=== PATIENT | male | born 1955 | race Caucasian/White ===

== ENCOUNTER 2018-04-26 08:16 | Day surgery (SDC) | payer MEDICAID ==
[2018-04-26] MEDS ORDERED: SODIUM CHLORIDE 0.9% 1,000 ML IV ONE (08:35)
[2018-04-26] MEDS ORDERED: DIPHENHYDRAMINE 50 MG/ML, 1ML IVPush ONE (09:00)
[2018-04-26] MEDS ORDERED: HEPARIN 1,000 UNITS/ML, 10ML ONE (09:45)
[2018-04-26] MEDS ORDERED: FENTANYL PF 100 MCG/2ML ONE (09:45)
[2018-04-26] MEDS ORDERED: MIDAZOLAM 1 MG/ML, 5ML ONE (09:45)
[2018-04-26] MEDS ORDERED: VERAPAMIL 2.5 MG/ML, 2ML ONE (09:45)
[2018-04-26] MEDS ORDERED: LIDOCAINE-MPF 2%, 2ML ONE (09:50)
[2018-04-26] MEDS ORDERED: PLEASE ENTER HEIGHT AND WEIGHT MC SCH (10:30)
[2018-04-26] MEDS ORDERED: SODIUM CHLORIDE 0.9% 1,000 ML IV SCH (11:29)
[2018-04-26] MEDS ORDERED: CEFD300C37 PO (13:08)
[2018-04-26] MEDS ORDERED: ALPR-475 PO (13:08)
[2018-04-26] MEDS ORDERED: FLUT9.9S16 NAS (13:08)
[2018-04-26] MEDS ORDERED: TEMA15CA PO (13:08)
[2018-04-26 13:22] VITALS: BP 146/95
== END 2018-04-26 15:15 | disposition home or self-care (01) ==
LOC: CACL 08:16
PROVIDERS: ATTEND Internal Medicine Cardiovascular Disease
DX: I35.0 Nonrheumatic aortic (valve) stenosis (principal); Z72.89 Other problems related to lifestyle
CPT/HCPCS: 71046; 93458; 99156; 99157; C1769; C1894; J1644; J2250; J3010; J3490; Q9967

== ENCOUNTER → 2018-05-21 | Outpatient (CLI) | payer MEDICARE, MEDICAID ==
[~2018-05-21] MED LIST: ALPR-475 PO; ASPI-621 PO; CEFD300C37 PO; DICL50TA2 PO; FLUT9.9S16 NAS; FURO-93 PO; OMNIPAQUE 350 MG/ML, 100ML BOTTLE ONE; OXYC5TAB3 PO; POTA10TA5 PO; TEMA15CA PO; WARF10TA PO-COUM
== END | disposition home or self-care (01) ==
LOC: RAD 11:13
PROVIDERS: ATTEND Thoracic Surgery (Cardiothoracic Vascular Surgery)
DX: Z01.810 Encounter for preprocedural cardiovascular examination (principal); I35.0 Nonrheumatic aortic (valve) stenosis
CPT/HCPCS: 71275; Q9967

== ENCOUNTER 2018-05-23 04:19 | Inpatient (IN) | payer MEDICARE, MEDICAID ==
[2018-05-22 12:50] LABS: MICROSCOPIC NOT IND
[2018-05-22 14:00] LABS: BASOPHILS # (AUTO) 0.07 x10^3/uL (0-0.1); BASOPHILS % (AUTO) 1 % (0-1); EOSINOPHILS # (AUTO) 0.25 x10^3/uL (0-0.4); EOSINOPHILS % (AUTO) 3 % (1-7); LYMPHOCYTES # (AUTO) 1.77 x10^3/uL (1-3.4); LYMPHOCYTES % (AUTO) 24 % (22-44); MD NO; MEAN CORPUSCULAR HEMOGLOBIN 32.2 pg (27.5-34.5); MEAN CORPUSCULAR HGB CONC 34.2 g/dL (33.2-36.2); MEAN CORPUSCULAR VOLUME 94.1 fL (81-97); MEAN PLATELET VOLUME 7.6 fL (7.4-10.4); MONOCYTES # (AUTO) 0.43 x10^3/uL (0.2-0.8); MONOCYTES % (AUTO) 6 % (2-9); NEUTROPHILS # (AUTO) 4.82 x10^3/uL (1.8-6.8); NEUTROPHILS % (AUTO) 66 % (42-75); PLATELET COUNT 267 x10^3/uL (130-400); RED BLOOD COUNT 5.07 x10^6/uL (4.38-5.82); RED CELL DISTRIBUTION WIDTH 13.9 % (9.4-14.8)
[2018-05-22 14:11] LABS: ALANINE AMINOTRANSFERASE 51 U/L (12-78); ALBUMIN 4.4 g/dL (3.4-5.0); ANION GAP 10 mmol/L (5-15); CALCIUM 9.7 mg/dL (8.5-10.1); CHLORIDE 103 mmol/L (98-107); CREATININE 1.42 mg/dL (0.7-1.3); INTERNATIONAL NORMALIZED RATIO 0.99 (0.93-1.1); PROTHROMBIN TIME 10.3 Seconds (9.6-11.5)
[2018-05-22 14:13] LABS: ALKALINE PHOSPHATASE 69 U/L (45-117); BILIRUBIN,TOTAL 0.6 mg/dL (0.2-1.0); TOTAL PROTEIN 8.1 g/dL (6.4-8.2)
[2018-05-22 14:58] LABS: HEMOGLOBIN A1C 5.3 % (4.2-6.3)
[~2018-05-23] VITALS: Ht 196.8 cm; Wt 119.2 kg
[~2018-05-23 04:19] MED LIST changes: -ASPI-621 PO; -DICL50TA2 PO; -FURO-93 PO; -OMNIPAQUE 350 MG/ML, 100ML BOTTLE ONE; -OXYC5TAB3 PO; -POTA10TA5 PO; -WARF10TA PO-COUM
[2018-05-23] MEDS ORDERED: ALBUMIN HUMAN 5% 500 ML IV PRN (04:30)
[2018-05-23 04:39] VITALS: BP_SYST 111; BP_SYST 123; BP_DIAS 80
[2018-05-23] MEDS ORDERED: CHLORHEXIDINE 15 ML UDC MM SCH (05:00)
[2018-05-23] MEDS ORDERED: CHLORHEXIDINE 15 ML UDC MM PRN (05:00)
[2018-05-23] MEDS ORDERED: INSULIN LISPRO 100 UNITS/ML, PEN SQ-INSULIN SCH (05:00)
[2018-05-23] MEDS ORDERED: MIDAZOLAM 10MG/2 ML ONE (06:48)
[2018-05-23] MEDS ORDERED: SUFentanil 50 MCG/ML, 5ML ONE (06:50)
[2018-05-23 06:54] VITALS: BP 114/84
[2018-05-23] MEDS ORDERED: PHENYLEPHRINE 10 MG in SODIUM CHLORIDE 0.9% 249 ML IV PRN (07:30)
[2018-05-23] MEDS ORDERED: DEXMEDETOMIDINE 200 MCG in SODIUM CHLORIDE 0.9% 48 ML IV SCH (07:30)
[2018-05-23] MEDS ORDERED: EPINEPHRINE 2 MG in SODIUM CHLORIDE 0.9% 248 ML IV SCH (07:30)
[2018-05-23] MEDS ORDERED: CEFUROXIME 1.5 GM in SODIUM CHLORIDE 0.9% 50 ML IVPB PRN (07:30)
[2018-05-23] MEDS ORDERED: REGULAR INSULIN 62.5 UNITS in SODIUM CHLORIDE 0.9% 249.375 ML IV PRN ×2 (07:30→10:51)
[2018-05-23] MEDS ORDERED: VANCOMYCIN 1,700 MG in SODIUM CHLORIDE 0.9% 250 ML IV PRN (07:30)
[2018-05-23] MEDS ORDERED: MANNITOL PMX 20% 500 ML IVPB PRN (07:30)
[2018-05-23] MEDS ORDERED: POTASSIUM CHLORIDE 80 MEQ, SODIUM BICARBONATE 8.4% 10 MEQ, MAGNESIUM SULFATE 0.5 GM, LI... IV PRN (07:30)
[2018-05-23] MEDS ORDERED: PROTAMINE SULFATE 10 MG/ML, 25ML ONE ×2 (08:48→08:49)
[2018-05-23] MEDS ORDERED: PROPOFOL 10 MG/ML, 20ML ONE (08:49)
[2018-05-23] MEDS ORDERED: AMINOCAPROIC ACID 250 MG/ML, 20ML ONE ×2 (08:49)
[2018-05-23] MEDS ORDERED: MUPIROCIN OINT 2%, 22GM TP SCH (09:00)
[2018-05-23] MEDS ORDERED: SODIUM CHLORIDE FLUSH 10ML SYR IVF SCH ×2 (09:00)
[2018-05-23] MEDS ORDERED: ROCURONIUM 10 MG/ML,10ML ONE (10:00)
[2018-05-23] MEDS ORDERED: VASOPRESSIN 20 UNIT/ML, 1ML ONE (10:15)
[2018-05-23] MEDS ORDERED: CALCIUM CHLORIDE 10%, 10ML SYR ONE (10:24)
[2018-05-23] MEDS ORDERED: SODIUM BICARBONATE 1 MEQ/ML, 50ML VIAL ONE (10:34)
[2018-05-23] MEDS ORDERED: SODIUM BICARB 8.4%, 50ML SYRINGE ONE (10:34)
[2018-05-23] MEDS ORDERED: LIDOCAINE 2% 100MG/5ML SYRINGE ONE (10:35)
[2018-05-23] MEDS ORDERED: HEPARIN 1,000 UNITS/ML, 30ML ONE (10:35)
[2018-05-23] MEDS ORDERED: ALBUMIN HUMAN 25% 50 ML ONE (10:35)
[2018-05-23] MEDS ORDERED: NITROGLYCERIN/D5W PMX 250 ML IV PRN (10:51)
[2018-05-23] MEDS ORDERED: DEXMEDETOMIDINE 200 MCG in SODIUM CHLORIDE 0.9% 48 ML IV PRN (10:51)
[2018-05-23] MEDS ORDERED: SODIUM CHLORIDE 0.9% 1,000 ML IV PRN (10:51)
[2018-05-23] MEDS ORDERED: VASOPRESSIN 50 UNIT in SODIUM CHLORIDE 0.9% 247.5 ML IV PRN (10:51)
[2018-05-23] MEDS ORDERED: DOBUTAMINE 250 MG in SODIUM CHLORIDE 0.9% 230 ML IV PRN (10:51)
[2018-05-23] MEDS ORDERED: INSULIN REGULAR 100 UNITS/ML, 3ML VIAL IVPush PRN (11:00)
[2018-05-23] MEDS ORDERED: BISACODYL 10 MG SUPP PR PRN (11:00)
[2018-05-23] MEDS ORDERED: ONDANSETRON 2MG/ML, 2ML IVPush PRN (11:00)
[2018-05-23] MEDS ORDERED: DEXTROSE 50%, 50ML SYRINGE IVPush PRN (11:00)
[2018-05-23] MEDS ORDERED: BISACODYL 5 MG EC TABLET PO PRN (11:00)
[2018-05-23] MEDS ORDERED: DEXTROSE 4 GM TAB.CHEW PO PRN (11:00)
[2018-05-23] MEDS ORDERED: ACETAMINOPHEN 650 MG SUPP PR PRN (11:00)
[2018-05-23] MEDS ORDERED: EPINEPHRINE 2 MG in SODIUM CHLORIDE 0.9% 248 ML IV PRN (11:00)
[2018-05-23] MEDS ORDERED: GLUCAGON 1 MG IM PRN (11:00)
[2018-05-23] MEDS ORDERED: MIDAZOLAM 1 MG/ML, 5ML IVPush PRN (11:00)
[2018-05-23] MEDS ORDERED: ACETAMINOPHEN 325 MG TABLET PO PRN (11:00)
[2018-05-23] MEDS ORDERED: PROCHLORPERAZINE 5 MG/ML, 2ML IVPush PRN (11:00)
[2018-05-23 11:30] LABS: GLUCOSE BY BLOOD GAS ANALYZER 130 mg/dL (70-110); HEMOGLOBIN BY BLOOD GAS ANALYZ 12.9 g/dL (14.0-18.0); POTASSIUM BY BLOOD GAS ANALYZR 4.5 mmol/L (3.6-5.5)
[2018-05-23] MEDS: SODIUM BICARB 8.4%, 50ML SYRINGE IV PRN ×2 (11:44→11:49)
[2018-05-23] MEDS: PHENYLEPHRINE 10 MG in SODIUM CHLORIDE 0.9% 249 ML IV PRN ×2 (11:48→20:20)
[2018-05-23] MEDS: MAGNESIUM SULFATE 1 GM in SODIUM CHLORIDE 0.9% 50 ML IVPB SCH (11:49)
[2018-05-23] MEDS: LACTATED RINGERS 1,000 ML IV PRN ×4 (11:50→16:58)
[2018-05-23] MEDS: DOCUSATE 100 MG CAPSULE PO SCH ×2 (12:04→20:20)
[2018-05-23] MEDS: INSULIN LISPRO 100 UNITS/ML, PEN SQ-INSULIN SCH ×3 (12:04→20:31)
[2018-05-23] MEDS: KSCALE TO 4.5 IV SCH ×3 (12:07→23:00)
[2018-05-23] MEDS: OXYcodone IR 5MG TABLET PO PRN ×3 (15:02→20:59)
[2018-05-23] MEDS: CEFUROXIME 1.5 GM in SODIUM CHLORIDE 0.9% 50 ML IVPB SCH (18:50)
[2018-05-23] MEDS: CHLORHEXIDINE 15 ML UDC PO SCH (20:20)
[2018-05-23] MEDS: HYDROcodone/APAP 5/325 TABLET PO PRN (20:22)
[2018-05-23] MEDS: MUPIROCIN OINT 2%, 22GM NAS SCH (20:22)
[2018-05-23] MEDS: TEMAZEPAM 15 MG CAPSULE PO PRN (20:26)
[2018-05-23] MEDS ORDERED: PHENYLEPHRINE 20 MG in SODIUM CHLORIDE 0.9% 248 ML IV PRN (23:00)
[2018-05-24] MEDS: OXYcodone IR 5MG TABLET PO PRN ×5 (00:04→22:54)
[2018-05-24] MEDS: HYDROcodone/APAP 5/325 TABLET PO PRN ×2 (02:33→17:17)
[2018-05-24] MEDS: morphine SULFATE 10 MG/ML, 1ML IVPush PRN ×2 (02:46→06:14)
[2018-05-24 04:56] LABS: INTERNATIONAL NORMALIZED RATIO 1.04 (0.93-1.1); PROTHROMBIN TIME 10.8 Seconds (9.6-11.5)
[2018-05-24] MEDS: KSCALE TO 4.5 IV SCH (05:00)
[2018-05-24 05:01] LABS: ALBUMIN 3.1 g/dL (3.4-5.0); ANION GAP 7 mmol/L (5-15); CALCIUM 7.5 mg/dL (8.5-10.1); CHLORIDE 107 mmol/L (98-107); CREATININE 0.84 mg/dL (0.7-1.3)
[2018-05-24 05:09] LABS: BASOPHILS # (AUTO) 0.03 x10^3/uL (0-0.1); BASOPHILS % (AUTO) 0 % (0-1); EOSINOPHILS # (AUTO) 0.01 x10^3/uL (0-0.4); EOSINOPHILS % (AUTO) 0 % (1-7); LYMPHOCYTES # (AUTO) 0.99 x10^3/uL (1-3.4); LYMPHOCYTES % (AUTO) 9 % (22-44); MD NO; MEAN CORPUSCULAR HEMOGLOBIN 31.6 pg (27.5-34.5); MEAN CORPUSCULAR HGB CONC 33.4 g/dL (33.2-36.2); MEAN CORPUSCULAR VOLUME 94.4 fL (81-97); MONOCYTES # (AUTO) 0.69 x10^3/uL (0.2-0.8); MONOCYTES % (AUTO) 7 % (2-9); NEUTROPHILS # (AUTO) 8.89 x10^3/uL (1.8-6.8); NEUTROPHILS % (AUTO) 84 % (42-75); PLATELET COUNT 167 x10^3/uL (130-400); RED BLOOD COUNT 3.87 x10^6/uL (4.38-5.82); RED CELL DISTRIBUTION WIDTH 13.9 % (9.4-14.8)
[2018-05-24] MEDS: CEFUROXIME 1.5 GM in SODIUM CHLORIDE 0.9% 50 ML IVPB SCH (06:14)
[2018-05-24] MEDS: INSULIN LISPRO 100 UNITS/ML, PEN SQ-INSULIN SCH (06:18)
[2018-05-24] MEDS: FUROSEMIDE 20 MG/2 ML IV SCH ×2 (07:53→20:15)
[2018-05-24] MEDS: KETOROLAC 30 MG/1 ML IM SCH ×2 (07:53→14:35)
[2018-05-24] MEDS: CHLORHEXIDINE 15 ML UDC PO SCH ×2 (07:53→20:15)
[2018-05-24] MEDS: ASPIRIN 81 MG TABLET EC PO SCH (07:54)
[2018-05-24] MEDS: POTASSIUM CHLORIDE 10 MEQ TABLET.ER PO SCH ×2 (07:54→17:19)
[2018-05-24] MEDS: DOCUSATE 100 MG CAPSULE PO SCH ×2 (07:54→20:15)
[2018-05-24] MEDS: MUPIROCIN OINT 2%, 22GM NAS SCH ×2 (07:56→20:18)
[2018-05-24] MEDS: WARFARIN BIOPROSTHETIC VALVE PROTOCOL 2-3 XX SCH (07:56)
[2018-05-24] MEDS: SODIUM CHLORIDE FLUSH 10ML SYR IVF SCH ×3 (07:56→20:32)
[2018-05-24] MEDS: FLUTICASONE FUROATE 50 MCG NAS SCH (07:56)
[2018-05-24] MEDS: MAGNESIUM SULFATE 1 GM in SODIUM CHLORIDE 0.9% 50 ML IVPB SCH (11:07)
[2018-05-24 12:09] VITALS: BP 117/67
[2018-05-24] MEDS: WARFARIN MODERAT DOSE PROTOCOL XX SCH (12:39)
[2018-05-24] MEDS ORDERED: WARFARIN 7.5 MG TABLET PO-COUM SCH (18:00)
[2018-05-24] MEDS: ALPRazolam 1MG TABLET PO PRN (19:21)
[2018-05-24 20:00] VITALS: BP 111/67
[2018-05-24] MEDS: TEMAZEPAM 15 MG CAPSULE PO PRN (20:15)
[2018-05-24] MEDS: KETOROLAC 30 MG/1 ML IV SCH (20:15)
[2018-05-25 01:36] VITALS: BP 117/69
[2018-05-25] MEDS: KETOROLAC 30 MG/1 ML IV SCH ×4 (01:40→22:25)
[2018-05-25] MEDS: ALPRazolam 1MG TABLET PO PRN ×2 (01:40→16:34)
[2018-05-25] MEDS: OXYcodone IR 5MG TABLET PO PRN ×4 (05:06→20:35)
[2018-05-25 06:01] LABS: BASOPHILS # (AUTO) 0.03 x10^3/uL (0-0.1); BASOPHILS % (AUTO) 0 % (0-1); EOSINOPHILS # (AUTO) 0.19 x10^3/uL (0-0.4); EOSINOPHILS % (AUTO) 2 % (1-7); LYMPHOCYTES # (AUTO) 1.65 x10^3/uL (1-3.4); LYMPHOCYTES % (AUTO) 20 % (22-44); MD NO; MEAN CORPUSCULAR HEMOGLOBIN 32.8 pg (27.5-34.5); MEAN CORPUSCULAR HGB CONC 34.6 g/dL (33.2-36.2); MEAN CORPUSCULAR VOLUME 94.8 fL (81-97); MEAN PLATELET VOLUME 7.9 fL (7.4-10.4); MONOCYTES # (AUTO) 0.61 x10^3/uL (0.2-0.8); MONOCYTES % (AUTO) 7 % (2-9); NEUTROPHILS # (AUTO) 5.96 x10^3/uL (1.8-6.8); NEUTROPHILS % (AUTO) 71 % (42-75); PLATELET COUNT 102 x10^3/uL (130-400); RED BLOOD COUNT 3.24 x10^6/uL (4.38-5.82); RED CELL DISTRIBUTION WIDTH 13.6 % (9.4-14.8)
[2018-05-25 06:06] LABS: INTERNATIONAL NORMALIZED RATIO 0.94 (0.93-1.1); PROTHROMBIN TIME 9.8 Seconds (9.6-11.5)
[2018-05-25 06:10] LABS: CHLORIDE 102 mmol/L (98-107)
[2018-05-25] MEDS: HYDROcodone/APAP 5/325 TABLET PO PRN (06:15)
[2018-05-25 06:16] LABS: ANION GAP 6 mmol/L (5-15); CALCIUM 7.7 mg/dL (8.5-10.1); CREATININE 1.09 mg/dL (0.7-1.3)
[2018-05-25 08:05] VITALS: BP 129/70
[2018-05-25] MEDS: SODIUM CHLORIDE FLUSH 10ML SYR IVF SCH ×4 (09:00→20:42)
[2018-05-25] MEDS: FLUTICASONE FUROATE 50 MCG NAS SCH (09:00)
[2018-05-25] MEDS: WARFARIN BIOPROSTHETIC VALVE PROTOCOL 2-3 XX SCH (09:00)
[2018-05-25] MEDS: FUROSEMIDE 20 MG/2 ML IV SCH ×2 (09:26→20:35)
[2018-05-25] MEDS: POTASSIUM CHLORIDE 10 MEQ TABLET.ER PO SCH ×2 (09:39→16:33)
[2018-05-25] MEDS: CHLORHEXIDINE 15 ML UDC PO SCH (09:39)
[2018-05-25] MEDS: ASPIRIN 81 MG TABLET EC PO SCH (09:40)
[2018-05-25] MEDS: MUPIROCIN OINT 2%, 22GM NAS SCH ×2 (09:45→20:36)
[2018-05-25] MEDS: ENOXAPARIN 40 MG/0.4 ML SQ SCH (09:59)
[2018-05-25] MEDS: DOCUSATE 100 MG CAPSULE PO SCH ×2 (10:00→20:34)
[2018-05-25] MEDS: MAGNESIUM HYDROXIDE 8%, 30ML UDC PO PRN (10:01)
[2018-05-25] MEDS: GUAIFENESIN ER 600 MG TABLET PO SCH ×2 (10:30→20:34)
[2018-05-25] MEDS: MAGNESIUM SULFATE 1 GM in SODIUM CHLORIDE 0.9% 50 ML IVPB SCH (11:41)
[2018-05-25] MEDS: WARFARIN MODERAT DOSE PROTOCOL XX SCH (12:00)
[2018-05-25 12:20] VITALS: BP 113/69
[2018-05-25] MEDS ORDERED: WARFARIN 7.5 MG TABLET PO-COUM ONE (18:00)
[2018-05-25 18:56] VITALS: BP 105/69
[2018-05-25] MEDS: ALPRazolam 1MG TABLET PO SCH ×2 (20:34→20:43)
[2018-05-26] MEDS: TEMAZEPAM 15 MG CAPSULE PO PRN (02:35)
[2018-05-26] MEDS: KETOROLAC 30 MG/1 ML IV SCH ×4 (02:35→20:39)
[2018-05-26 02:40] VITALS: BP 125/78
[2018-05-26] MEDS: OXYcodone IR 5MG TABLET PO PRN ×3 (05:18→17:53)
[2018-05-26 05:24] LABS: INTERNATIONAL NORMALIZED RATIO 0.95 (0.93-1.1); PROTHROMBIN TIME 9.9 Seconds (9.6-11.5)
[2018-05-26 05:27] LABS: MEAN CORPUSCULAR HEMOGLOBIN 32.5 pg (27.5-34.5); MEAN CORPUSCULAR HGB CONC 34.1 g/dL (33.2-36.2); MEAN CORPUSCULAR VOLUME 95.2 fL (81-97); PLATELET COUNT 97 x10^3/uL (130-400); RED BLOOD COUNT 2.84 x10^6/uL (4.38-5.82); RED CELL DISTRIBUTION WIDTH 13.9 % (9.4-14.8)
[2018-05-26 05:34] LABS: ANION GAP 6 mmol/L (5-15); CALCIUM 7.5 mg/dL (8.5-10.1); CHLORIDE 103 mmol/L (98-107)
[2018-05-26 05:35] LABS: CREATININE 0.88 mg/dL (0.7-1.3)
[2018-05-26 06:20] LABS: BASOPHILS # (AUTO) 0.11 x10^3/uL (0-0.1); BASOPHILS % (AUTO) 2 % (0-1); EOSINOPHILS # (AUTO) 0.17 x10^3/uL (0-0.4); EOSINOPHILS % (AUTO) 3 % (1-7); LYMPHOCYTES # (AUTO) 1.33 x10^3/uL (1-3.4); LYMPHOCYTES % (AUTO) 21 % (22-44); MD SCAN; MONOCYTES # (AUTO) 0.44 x10^3/uL (0.2-0.8); MONOCYTES % (AUTO) 7 % (2-9); NEUTROPHILS # (AUTO) 4.33 x10^3/uL (1.8-6.8); NEUTROPHILS % (AUTO) 68 % (42-75)
[2018-05-26 07:25] VITALS: BP 118/73
[2018-05-26] MEDS: MAGNESIUM HYDROXIDE 8%, 30ML UDC PO PRN (08:38)
[2018-05-26] MEDS: FUROSEMIDE 20 MG/2 ML IV SCH ×2 (08:38→20:39)
[2018-05-26] MEDS: POTASSIUM CHLORIDE 10 MEQ TABLET.ER PO SCH ×2 (08:39→17:53)
[2018-05-26] MEDS: DOCUSATE 100 MG CAPSULE PO SCH ×2 (08:39→20:39)
[2018-05-26] MEDS: ASPIRIN 81 MG TABLET EC PO SCH (08:39)
[2018-05-26] MEDS: GUAIFENESIN ER 600 MG TABLET PO SCH ×2 (08:39→20:39)
[2018-05-26] MEDS: ENOXAPARIN 40 MG/0.4 ML SQ SCH (08:39)
[2018-05-26] MEDS: MUPIROCIN OINT 2%, 22GM NAS SCH ×2 (08:40→20:40)
[2018-05-26] MEDS: SODIUM CHLORIDE FLUSH 10ML SYR IVF SCH ×4 (08:42→20:40)
[2018-05-26] MEDS: WARFARIN BIOPROSTHETIC VALVE PROTOCOL 2-3 XX SCH (08:43)
[2018-05-26] MEDS: FLUTICASONE FUROATE 50 MCG NAS SCH (08:45)
[2018-05-26] MEDS: WARFARIN MODERAT DOSE PROTOCOL XX SCH (12:00)
[2018-05-26 14:20] VITALS: BP 122/78
[2018-05-26] MEDS: ALPRazolam 1MG TABLET PO SCH ×2 (16:47→20:39)
[2018-05-26] MEDS ORDERED: WARFARIN 7.5 MG TABLET PO-COUM SCH (18:00)
[2018-05-26 19:47] VITALS: BP 125/69
[2018-05-27 01:18] VITALS: BP 102/69
[2018-05-27] MEDS: OXYcodone IR 5MG TABLET PO PRN ×4 (02:07→23:37)
[2018-05-27] MEDS: TEMAZEPAM 15 MG CAPSULE PO PRN ×2 (02:07→21:09)
[2018-05-27] MEDS: KETOROLAC 30 MG/1 ML IV SCH ×4 (03:30→23:37)
[2018-05-27 05:21] LABS: INTERNATIONAL NORMALIZED RATIO 1.03 (0.93-1.1); PROTHROMBIN TIME 10.7 Seconds (9.6-11.5)
[2018-05-27 05:26] LABS: ANION GAP 5 mmol/L (5-15); CALCIUM 7.3 mg/dL (8.5-10.1); CHLORIDE 102 mmol/L (98-107)
[2018-05-27 05:28] LABS: CREATININE 0.94 mg/dL (0.7-1.3)
[2018-05-27 05:34] LABS: BASOPHILS # (AUTO) 0.09 x10^3/uL (0-0.1); BASOPHILS % (AUTO) 2 % (0-1); EOSINOPHILS # (AUTO) 0.21 x10^3/uL (0-0.4); EOSINOPHILS % (AUTO) 4 % (1-7); LYMPHOCYTES # (AUTO) 1.36 x10^3/uL (1-3.4); LYMPHOCYTES % (AUTO) 25 % (22-44); MD NO; MEAN CORPUSCULAR HGB CONC 34.4 g/dL (33.2-36.2); MEAN CORPUSCULAR VOLUME 93.1 fL (81-97); MEAN PLATELET VOLUME 7.9 fL (7.4-10.4); MONOCYTES # (AUTO) 0.43 x10^3/uL (0.2-0.8); MONOCYTES % (AUTO) 8 % (2-9); NEUTROPHILS # (AUTO) 3.41 x10^3/uL (1.8-6.8); NEUTROPHILS % (AUTO) 62 % (42-75); PLATELET COUNT 144 x10^3/uL (130-400); RED BLOOD COUNT 2.85 x10^6/uL (4.38-5.82); RED CELL DISTRIBUTION WIDTH 13.3 % (9.4-14.8)
[2018-05-27] MEDS: GUAIFENESIN ER 600 MG TABLET PO SCH ×2 (08:03→21:09)
[2018-05-27] MEDS: DOCUSATE 100 MG CAPSULE PO SCH ×2 (08:04→21:09)
[2018-05-27] MEDS: FUROSEMIDE 20 MG/2 ML IV SCH ×2 (08:04→21:10)
[2018-05-27] MEDS: ASPIRIN 81 MG TABLET EC PO SCH (08:04)
[2018-05-27] MEDS: POTASSIUM CHLORIDE 10 MEQ TABLET.ER PO SCH ×2 (08:04→17:27)
[2018-05-27] MEDS: WARFARIN BIOPROSTHETIC VALVE PROTOCOL 2-3 XX SCH (08:05)
[2018-05-27] MEDS: ENOXAPARIN 40 MG/0.4 ML SQ SCH (08:05)
[2018-05-27] MEDS: SODIUM CHLORIDE FLUSH 10ML SYR IVF SCH ×4 (08:07→21:00)
[2018-05-27] MEDS: MUPIROCIN OINT 2%, 22GM NAS SCH ×2 (08:17→21:00)
[2018-05-27 08:50] VITALS: BP 154/85
[2018-05-27] MEDS: FLUTICASONE FUROATE 50 MCG NAS SCH (09:00)
[2018-05-27 09:18] VITALS: BP 136/72
[2018-05-27] MEDS: WARFARIN MODERAT DOSE PROTOCOL XX SCH (11:32)
[2018-05-27] MEDS: ALPRazolam 1MG TABLET PO SCH ×2 (13:40→21:09)
[2018-05-27 15:51] VITALS: BP 131/68
[2018-05-27] MEDS ORDERED: WARFARIN 10 MG TABLET PO-COUM ONE (18:00)
[2018-05-27 20:08] VITALS: BP 146/70
[2018-05-28 02:49] VITALS: BP 110/70
[2018-05-28 05:16] LABS: INTERNATIONAL NORMALIZED RATIO 1.15 (0.93-1.1); PROTHROMBIN TIME 11.9 Seconds (9.6-11.5)
[2018-05-28 05:20] LABS: ANION GAP 6 mmol/L (5-15); CALCIUM 8.1 mg/dL (8.5-10.1); CHLORIDE 102 mmol/L (98-107)
[2018-05-28 05:22] LABS: CREATININE 0.99 mg/dL (0.7-1.3)
[2018-05-28 05:27] LABS: BASOPHILS # (AUTO) 0.05 x10^3/uL (0-0.1); BASOPHILS % (AUTO) 1 % (0-1); EOSINOPHILS # (AUTO) 0.25 x10^3/uL (0-0.4); EOSINOPHILS % (AUTO) 5 % (1-7); LYMPHOCYTES % (AUTO) 31 % (22-44); MD NO; MEAN CORPUSCULAR HEMOGLOBIN 32.8 pg (27.5-34.5); MEAN CORPUSCULAR HGB CONC 34.7 g/dL (33.2-36.2); MEAN CORPUSCULAR VOLUME 94.4 fL (81-97); MEAN PLATELET VOLUME 7.1 fL (7.4-10.4); MONOCYTES # (AUTO) 0.43 x10^3/uL (0.2-0.8); MONOCYTES % (AUTO) 9 % (2-9); NEUTROPHILS # (AUTO) 2.57 x10^3/uL (1.8-6.8); NEUTROPHILS % (AUTO) 54 % (42-75); PLATELET COUNT 187 x10^3/uL (130-400); RED BLOOD COUNT 3.05 x10^6/uL (4.38-5.82); RED CELL DISTRIBUTION WIDTH 13.3 % (9.4-14.8)
[2018-05-28] MEDS: KETOROLAC 30 MG/1 ML IV SCH ×2 (05:36→10:55)
[2018-05-28] MEDS: OXYcodone IR 5MG TABLET PO PRN ×2 (05:36→10:55)
[2018-05-28 07:01] VITALS: BP 135/74
[2018-05-28] MEDS: FLUTICASONE FUROATE 50 MCG NAS SCH (09:00)
[2018-05-28] MEDS: MUPIROCIN OINT 2%, 22GM NAS SCH (09:00)
[2018-05-28] MEDS: POTASSIUM CHLORIDE 10 MEQ TABLET.ER PO SCH (09:09)
[2018-05-28] MEDS: ENOXAPARIN 40 MG/0.4 ML SQ SCH (09:09)
[2018-05-28] MEDS: FUROSEMIDE 20 MG/2 ML IV SCH (09:10)
[2018-05-28] MEDS: GUAIFENESIN ER 600 MG TABLET PO SCH (09:10)
[2018-05-28] MEDS: DOCUSATE 100 MG CAPSULE PO SCH (09:10)
[2018-05-28] MEDS: ASPIRIN 81 MG TABLET EC PO SCH (09:10)
[2018-05-28] MEDS: SODIUM CHLORIDE FLUSH 10ML SYR IVF SCH ×2 (09:12)
[2018-05-28] MEDS ORDERED: DICL50TA2 PO (09:30)
[2018-05-28] MEDS ORDERED: POTA10TA5 PO (09:30)
[2018-05-28] MEDS ORDERED: FURO-93 PO (09:30)
[2018-05-28] MEDS ORDERED: ASPI-621 PO (09:30)
[2018-05-28] MEDS ORDERED: OXYC5TAB3 PO (09:30)
[2018-05-28] MEDS ORDERED: WARF10TA PO-COUM (09:37)
[2018-05-28] MEDS: WARFARIN MODERAT DOSE PROTOCOL XX SCH (12:00)
[2018-05-28 12:15] VITALS: BP 137/79
[2018-05-28] MEDS: ALPRazolam 1MG TABLET PO SCH (12:48)
[2018-05-28] MEDS ORDERED: WARFARIN 10 MG TABLET PO-COUM ONE (18:00)
== END 2018-05-28 14:07 | disposition home or self-care (01) | DRG 219 ==
LOC: 5SO 04:19 → ORIP 04:19 → UNDOADMIN 04:19 → CSU 08:05 → 5SO 05-24 11:51 → DCLOUNGE 05-28 13:50
PROVIDERS: ADMIT Thoracic Surgery (Cardiothoracic Vascular Surgery); ATTEND Thoracic Surgery (Cardiothoracic Vascular Surgery)
PROC: 5A1221Z Performance of Cardiac Output, Continuous (ICD-10-PCS; 2018-05-23)
PROC: B246ZZ4 Ultrasonography of Right and Left Heart, Transesophageal (ICD-10-PCS; 2018-05-23)
PROC: 02RF08Z Replacement of Aortic Valve with Zooplastic Tissue, Open Approach (ICD-10-PCS; principal; 2018-05-23 07:30)
DX: I35.2 Nonrheumatic aortic (valve) stenosis with insufficiency (principal); J96.01 Acute respiratory failure with hypoxia; J98.11 Atelectasis; G47.00 Insomnia, unspecified; Z80.7 Family history of other malignant neoplasms of lymphoid, hematopoietic and related tissues; Z82.5 Family history of asthma and other chronic lower respiratory diseases; Z87.891 Personal history of nicotine dependence
CPT/HCPCS: 36415; 36600; 71045; 71046; 80048; 80053; 81003; 82040; 82330; 82800; 82803; 82810; 82947; 82962; 83036; 83735; 84132; 84295; 85014; 85018; 85025; 85049; 85347; 85610; 85730; 86850; 86900; 86923; 87081; 88305; 93005; 93312; 93321; 93325; 93880; 94002; C1768; G0378; J0697; J1644; J1650; J1815; J1885; J2250; J2405; J2704; J2720; J3370; J3475; J3480; J3490; P9045; P9047; C1760; J0171; J1940; J2270; J2370; J7050; J7120

== ENCOUNTER → 2018-12-19 | Outpatient (CLI) | payer MEDICARE ==
[~2018-12-19] MED LIST changes: +ASPI81TA45 PO; +DICL50TA2 PO; +FURO-93 PO; +OXYC5TAB3 PO; +POTA10TA5 PO; +WARF10TA PO-COUM
== END | disposition home or self-care (01) ==
LOC: CVU 12:31
PROVIDERS: ATTEND Internal Medicine Cardiovascular Disease
DX: I34.8 Other nonrheumatic mitral valve disorders (principal); Z95.2 Presence of prosthetic heart valve
CPT/HCPCS: 93306